=== PATIENT | female | born 1970 | race Caucasian/White ===

== ENCOUNTER 2022-03-20 06:12 | Day surgery (SDC) | payer OTHER ==
[~2022-03-20] VITALS: Ht 157.5 cm; Wt 108.5 kg
[~2022-03-20 06:12] MED LIST: ACETAMINOPHEN PO; ALBU90OI INH; Acerola C500 MG PO; Atarax10 MG PO; B-12500 MC2 PO; BUSPIRONE HCL7.5 M1 PO; CALCIUM PO; CELEXA40 M1 PO; CYCL10 PO; Children's Clari5 MG PO; DICL75ER PO; DICLOFENAC SOD100 G1 TOP; FLONASE ALLERG9.9 M2; METAMUCIL POWD575 GM PO; MONT10T PO; MULVITA PO; MUPIROCIN15 GM TOP; Norco 7.5-3251 EACH PO; ONDA4 PO; RIZATRIPTAN10 MG SL; TRAZ50 PO; VITAMIN D310 MC4 PO
--- NOTE | 2022-03-20 08:31 | NUR ---
03/20/22 0831 Ish Menendez PT ON [facility] RUNNING STARTED IN PRE OP AT 0730.
[2022-03-20] MEDS ORDERED: Vitamin B-12100 MCG PO (12:54)
--- NOTE | 2022-03-20 17:13 | NUR ---
SHIFT SUMMARY PT HAS DONE WELL POST OP. EATING, DRINKING, & VOIDING. UP EASILY SEVERAL TIMES. PAIN WELL CONTROLLED. PLEASANT & UPBEAT.
[2022-03-21 06:27] LABS: BASOPHILS ABSOLUTE AUTO 0.03 K/mm3 (0.00-0.23); BASOPHILS PERCENT AUTO 0 % (0-2); EOSINOPHILS ABSOLUTE AUTO 0.06 K/mm3 (0.00-0.68); EOSINOPHILS PERCENT AUTO 0 % (0-6); Hematocrit 39.5 % (33.0-51.0); Hemoglobin 13.1 g/dL (11.5-16.0); IMMATURE GRAN ABSOLUTE AUTO 0.05 K/mm3 (0.00-0.10); IMMATURE GRAN PERCENT AUTO 0 % (0-1); LYMPHOCYTES ABSOLUTE AUTO 2.35 K/mm3 (0.84-5.20); LYMPHOCYTES PERCENT AUTO 17 % (21-46); MONOCYTES ABSOLUTE AUTO 1.07 K/mm3 (0.16-1.47); MONOCYTES PERCENT AUTO 8 % (4-13); Mean Corpuscular HGB 30.3 pg (26.0-34.0); Mean Corpuscular HGB Conc 33.2 g/dL (31.5-36.5); Mean Corpuscular Volume 91 fL (80-100); Mean Platelet Volume 9.4 fL (9.1-12.4); NEUTROPHILS ABSOLUTE AUTO 10.55 K/mm3 (1.96-9.15); NEUTROPHILS PERCENT AUTO 75 % (41-73); Platelet Count 342 K/mm3 (150-400); RDW Coefficient Variation 12.2 % (11.7-14.2); RDW Standard Deviation 40.9 fL (35.1-46.3); Red Blood Cell Count 4.33 M/mm3 (3.80-5.20); White Blood Cell Count 14.11 K/mm3 (4.00-11.30)
[2022-03-21 07:07] LABS: Bun/Creatinine Ratio 25.5 (12.0-20.0); Calcium, Blood 9.4 mg/dL (8.5-10.1); Creatinine, Blood 0.55 mg/dL (0.40-1.00); Potassium, Blood 3.7 mmol/L (3.5-5.5)
[2022-03-21] MEDS ORDERED: ELIQUIS2.5 MG PO (09:22)
[2022-03-21] MEDS ORDERED: Percocet 5-3251 EACH PO (09:22)
--- NOTE | 2022-03-21 10:23 | NUR ---
DISCHARGE SUMMARY PATIENT ALERT AND ORIENTED THROUGHOUT AM. TOLERATING REGULAR DIET AND LIQUIDS. VOIDING WELL. PAIN CONTROLLED WITH PO PAIN MEDS. AMBULATING WITH FWW AND GAIT BELT IN ROOM AND HALLS. CLEARED FOR DISCHARGE BY PHYSICAL THERAPY. DISCHARGE ORDER IN CHART. DISCHARGE EDUCATION GIVEN ON NEW MEDS, WOUND CARE, ACTIVITY, AND FOLLOW UP APPTS. IV DC'Stefania RODRIGUEZL.
--- NOTE | 2022-03-21 11:09 | NUR ---
DEPARTURE PATIENT LEFT UNIT AT 1050 VIA WHEELCHAIR WITH FAMILY FOR HOME.
== END 2022-03-21 10:57 | disposition home or self-care (01) ==
LOC: ORSCMMR 06:12 → SURS 10:36 → ORD 11:00 → ORSCMMR 11:00
PROVIDERS: Orthopaedic Surgery
PROC: 8E0Y0CZ Robotic Assisted Procedure of Lower Extremity, Open Approach (ICD-10-PCS; principal; 2022-03-20 07:30)
PROC: 0SRC0JA Replacement of Right Knee Joint with Synthetic Substitute, Uncemented, Open Approach (ICD-10-PCS; principal; 2022-03-20 07:30)
DX: M17.11 Unilateral primary osteoarthritis, right knee (principal); J45.909 Unspecified asthma, uncomplicated; F41.9 Anxiety disorder, unspecified; E66.9 Obesity, unspecified; Z68.41 Body mass index [BMI] 40.0-44.9, adult; Z79.51 Long term (current) use of inhaled steroids; Z87.891 Personal history of nicotine dependence
CPT/HCPCS: 27447; 20985; S2900; 36415; 73560-RT; 80048; 85025; 94760; 97110; 97116; 97162; A9270; C1776; J0171; J0690; J0735; J1100; J1885; J2250; J2370; J2405; J2704; J2795; J3010; J3370; J7120